=== PATIENT | female | born 2000 | race Caucasian/White ===

== ENCOUNTER 2021-09-16 14:30 | Emergency (ER) | payer OTHER | END 2021-09-16 15:48 | disposition home or self-care (01) | LOC: FER 14:30 | DX: S44.92XA Injury of unspecified nerve at shoulder and upper arm level, left arm, initial encounter (principal); F17.290 Nicotine dependence, other tobacco product, uncomplicated; Z28.310 Unvaccinated for COVID-19 | CPT/HCPCS: 99284 ==